=== PATIENT | female | born 1970 | race American Indian/Alaskan Native ===

== ENCOUNTER 2017-04-07 04:50 | Emergency (ER) | payer SELFPAY ==
--- NOTE | 2017-04-07 07:15 | XRay Report ---
RIGHT TIBIA/FIBULA: History: Right leg pain and swelling, injury AP and lateral views of the right tibia/fibula demonstrate normal mineralization and contours for this patient's age. No destructive changes are noted and the adjacent soft tissues are normal. IMPRESSION: Unremarkable right tibia/fibula.
--- NOTE | 2017-04-07 07:27 | Emergency Department Report ---
ED Lower Extremity HPI - General Chief Complaint: Extremity Injury, Lower Stated Complaint: RT ANKLE PAIN Time Seen by Provider: 04/07/17 07:26 Source: patient, family Mode of arrival: Ambulatory Limitations: No Limitations - History of Present Illness Initial Comments: Patient here complaining that her right leg is swollen and status post small post being caught between a forklift and a palate at about 3:30 to 3:40 AM this morning. She says she felt a pop in her knee and cannot appear weight in her right lower extremity. She denies any head injury headache or neck pain. Denies any fever or chills. Denies any history of blood clots in her lungs or in her legs. She reports leg is swollen and painful achy at 9 out of 10. No [id number] medication taken worse rate. Better with resting. Denies any numbness or tingling. Denies any medical history. Denies taking control or any long distance travel recently. MD Complaint: leg injury -: This morning Injury: Leg: Right (right leg pain and swelling after injury) Type of Injury: blunt Place: work Severity: severe Severity scale (0 -10): 9 Improves With: cold therapy, immobilization Worsens With: weight bearing, movement, palpation Context: direct blow Associated Symptoms: snap/pop sensation, swelling, unable to bear weight. denies: numbness, tingling, able to partially bear weight, ambulatory Treatments Prior to Arrival: cold therapy - Related Data Previous Rx's Medication Instructions Recorded Last Taken Type Cyclobenzaprine [Flexeril] 10 mg PO TID PRN #15 tablet 04/07/17 Unknown Rx Ibuprofen [Motrin] 600 mg PO Q8H PRN #15 tablet 04/07/17 Unknown Rx Allergies Allergy/AdvReac Type Severity Reaction Status Date / Time No Known Allergies Allergy Unverified 04/07/17 05:07 ED Review of Systems ROS: Stated complaint: RT ANKLE PAIN Other details as noted in HPI Comment: All other systems reviewed and negative Constitutional: no symptoms reported Respiratory: no symptoms reported Cardiovascular: denies: chest pain, palpitations, edema, syncope Gastrointestinal: denies: abdominal pain, nausea, vomiting Genitourinary: denies: urgency, dysuria Musculoskeletal: joint swelling, arthralgia. denies: back pain, myalgia Skin: denies: rash Neurological: abnormal gait (the right leg injury). denies: headache, numbness , paresthesias, confusion ED Past Medical Hx - Past Medical History Previous Medical History?: No - Surgical History Past Surgical History?: No - Family History Family history: no significant - Social History Smoking Status: Current Every Day Smoker Substance Use Type: None - Medications Home Medications: Home Medications Medication Instructions Recorded Confirmed Last Taken Type Cyclobenzaprine [Flexeril] 10 mg PO TID PRN #15 tablet 04/07/17 Unknown Rx Ibuprofen [Motrin] 600 mg PO Q8H PRN #15 tablet 04/07/17 Unknown Rx ED Physical Exam - General Limitations: No Limitations General appearance: alert, in no apparent distress - Head Head exam: Present: atraumatic, normocephalic, normal inspection - Eye Eye exam: Present: normal appearance, PERRL, EOMI Pupils: Present: normal accommodation - ENT ENT exam: Present: normal exam, normal orophraynx, mucous membranes moist - Neck Neck exam: Present: normal inspection, full ROM. Absent: tenderness, meningismus, lymphadenopathy - Respiratory Respiratory exam: Present: normal lung sounds bilaterally. Absent: respiratory distress, chest wall tenderness, accessory muscle use - Cardiovascular Cardiovascular Exam: Present: regular rate, normal rhythm, normal heart sounds. Absent: systolic murmur, diastolic murmur - GI/Abdominal GI/Abdominal exam: Present: soft, normal bowel sounds. Absent: distended, tenderness, guarding, rebound, rigid, organomegaly, mass, bruit, pulsatile mass , hernia - Extremities Exam Extremities exam: Present: normal inspection, full ROM (painful to move right lower extremity from her leg pain and swelling due to injury) - Expanded Lower Extremity Exam Right Hip exam: Present: normal inspection, full ROM, pelvic stability. Absent: tenderness, swelling, abrasion, laceration, ecchymosis, deformity, crepidus, dislocation, erythema, external rotation, internal rotation, shortening Upper Leg exam: Present: normal inspection, full ROM. Absent: tenderness, swelling, abrasion, laceration, ecchymosis, deformity, crepidus, dislocation, erythema Knee exam: Present: normal inspection, full ROM, full knee extension. Absent: tenderness, swelling, abrasion, laceration, ecchymosis, deformity, crepidus, dislocation, erythema, effusion, pain w/ pronation/supination, posterior draw sign, pain/laxity with valgus, pain/laxity with varus Lower Leg exam: Present: full ROM, tenderness (leg, rt), swelling. Absent: normal inspection, abrasion, laceration, ecchymosis, deformity, crepidus, dislocation, erythema, palpable cord Ankle exam: Present: normal inspection, full ROM. Absent: tenderness, swelling , abrasion, laceration, ecchymosis, deformity, crepidus, dislocation, erythema, anterior draw sign Foot/Toe exam: Present: normal inspection, full ROM. Absent: tenderness, swelling, abrasion, laceration, ecchymosis, deformity, crepidus, dislocation, erythema, amputation, puncture wound, foreign body, calcaneal tenderness, tenderness at base of 5th metatarsal, nail avulsion, subungual hematoma Neuro vascular tendon exam: Present: no vascular compromise, motor deficit ( Limited range of motion to right leg due to injury. Patient with 3/5 strength right leg), sensory deficit. Absent: pulse deficit, abnormal cap refill, tendon deficit, extremity cold to touch, pallor, abnormal 2-point discrimination , decreased fine/light touch, foot drop, peroneal nerve deficit, significant pain with passive ROM of distal joint Gait: Positive: antalgic - Back Exam Back exam: Absent: tenderness, CVA tenderness (R), CVA tenderness (L), muscle spasm, paraspinal tenderness, vertebral tenderness, rash noted - Neurological Exam Neurological exam: Present: alert, oriented X3, abnormal gait ( due to right leg pain and swelling), motor sensory deficit (limited motor function to right leg injury. Normal sensation.), reflexes normal - Psychiatric Psychiatric exam: Present: normal affect, normal mood - Skin Skin exam: Present: warm, dry, intact, normal color. Absent: rash ED Course Vital Signs 04/07/17 05:02 Temperature 98.1 F Pulse Rate 88 Respiratory 18 Rate Blood Pressure 142/52 O2 Sat by Pulse 99 Oximetry - Reevaluation(s) Reevaluation #1: 04/07/17 09:01 Resting given Fate 5/325 mg 2 tablets in the emergency room for pain with positive relief. She was also given crutches with demonstration. - Orthopedic Splinting/Casting Injury #1 Side: right Lower Extremity Injury Location: lower leg Other Orthopedic Equipment: crutches ED Lower Extremity MDM - Radiology Data Radiology results: report reviewed Xray of right tib-fib reveal no acute findings. - Medical Decision Making ED course: She here status post injury at work with pain and swelling to her right leg and reports inability to weight-bear. X-ray of right tib-fib revealed no acute fracture or dislocation. Patient was given 5/325 2 tablets emergency room for pain which relieved her pain. She was also given crutches she says she cannot weight-bear to her right lower extremity. I discussed the patient her x-ray results and discussed with her that she'll need to follow-up with orthopedic doctor on Monday for follow-up visit if she still continues to have pain. Patient discharged home with her family prescription for Motrin and Flexeril and instructed not to weight-bear on her right lower extremity and to rest and elevate the affected area. She was understanding the discharge instruction and treatment plan. Critical care attestation.: If time is entered above; I have spent that time in minutes in the direct care of this critically ill patient, excluding procedure time. ED Disposition Clinical Impression: Right leg swelling, Arthralgia of right lower leg Right leg injury Qualifiers: Encounter type: initial encounter Qualified Code(s): S89.91XA - Unspecified injury of right lower leg, initial encounter Disposition: - TO HOME OR SELFCARE Is pt being admited?: No Does the pt Need Aspirin: No Condition: Stable Instructions: Arthralgia (ED), Leg Edema (ED), Crutch Instructions (ED), RICE Therapy (ED) Additional Instructions: Please follow up with orthopedic doctor as instructed Take Motrin and Flexeril and this should help your pain. Not drive or operate heavy machinery while taking Flexeril as this medication causes drowsiness Use crutches as instructed. follow RICE protocol in discharge instructions Prescriptions: Cyclobenzaprine [Flexeril] 10 mg PO TID PRN #15 tablet PRN Reason: Muscle Spasm Ibuprofen [Motrin] 600 mg PO Q8H PRN #15 tablet PRN Reason: Pain Referrals: PRIMARY CARE, [Primary Care Provider] - 3-5 Days MAILE MELÉNDEZ MD [Staff Physician] - 04/10/17 Forms: Work/School Release Form(ED)
[2017-04-07] MEDS ORDERED: NORCO 5/325 PO ONE (08:19)
[2017-04-07 08:53] VITALS: BP 116/37
== END 2017-04-07 09:55 | disposition home or self-care (01) ==
LOC: ED 04:50
DX: S89.91XA Unspecified injury of right lower leg, initial encounter (principal); M79.89 Other specified soft tissue disorders; F17.200 Nicotine dependence, unspecified, uncomplicated; W23.0XXA Caught, crushed, jammed, or pinched between moving objects, initial encounter; Y93.9 Activity, unspecified; Y99.9 Unspecified external cause status; Y92.69 Other specified industrial and construction area as the place of occurrence of the external cause
CPT/HCPCS: 99284